=== PATIENT | female | born 1995 | race Two or more races ===

== ENCOUNTER 2025-05-12 14:13 | Emergency (ER) | payer OTHER ==
[~2025-05-12] VITALS: Ht 167.6 cm; Wt 90.7 kg
[2025-05-12] MEDS ORDERED: KETOROLAC TROMETHAMINE 30 MG VIAL ONE (17:37)
[2025-05-12] MEDS ORDERED: KETOROLAC TROMETHAMINE 30 MG VIAL IV STA (17:38)
[2025-05-12] MEDS ORDERED: MORPHINE SULFATE 4 MG/ML VIAL IV STA (17:39)
[2025-05-12 17:58] LABS: BASO % 0.1 % (0.1-1.2); EOS # 0.01 (0.04-0.54); EOS % 0.1 % (0.7-7.0); LYMPH # 2.26 (1.18-3.74); LYMPH % 18.8 % (19.3-53.1); MEAN PLATELET VOLUME 10.00 fl (9.4-12.4); MONO # 0.57 (0.24-0.82); MONO % 4.7 % (4.7-12.5); NEUT # 9.13 (1.56-6.13); NEUT % 75.9 % (34.0-71.1); RED CELL DISTRIBUTION WIDTH 13.1 % (11.6-14.4)
[2025-05-12 18:33] LABS: INR 1.05
[2025-05-12 18:40] LABS: BUN CREA RATIO 18.0 (7.0-25.0); CREATININE SERUM 0.74 mg/dL (0.55-1.02); GFR 93.45; GLUCOSE FASTING 119.0 mg/dL (65-100); OSMOLALITY SERUM 286.0 MOSM/KG (275-295)
== END 2025-05-12 20:15 | disposition home or self-care (01) ==
LOC: ER 14:13
DX: N94.6 Dysmenorrhea, unspecified (principal); Z91.038 Other insect allergy status

== ENCOUNTER 2025-06-30 09:00 | Day surgery (SDC) | payer OTHER ==
[2025-06-23 10:33] VITALS: BP 121/82
[~2025-06-30] VITALS: Ht 167.6 cm; Wt 89.4 kg
[2025-06-30] MEDS ORDERED: POVIDONE-IODINE 118 ML BOTT TOP ONE ×2 (14:01→15:00)
[2025-06-30] MEDS ORDERED: BUPIVACAINE HCL/MPF 0.5% 30ML VIAL ONE (14:01)
[2025-06-30] MEDS ORDERED: IBU800 MG PO (14:16)
[2025-06-30] MEDS ORDERED: OXYCODONE HCL5 M1 PO (14:16)
[2025-06-30] MEDS ORDERED: COLACE100 MG PO (14:16)
[2025-06-30] MEDS ORDERED: SUGAMMADEX SODIUM 200 MG/2 ML VIAL IV ONE ×2 (15:09→16:15)
== END 2025-06-30 19:10 | disposition home or self-care (01) ==
LOC: CIR.AMB 09:00
PROVIDERS: ATTEND Student in an Organized Health Care Education/Training Program
DX: D27.1 Benign neoplasm of left ovary (principal); Z30.2 Encounter for sterilization; R10.2 Pelvic and perineal pain; N80.3A1 Superficial endometriosis of the right uterosacral ligament; N80.213 Superficial endometriosis of bilateral fallopian tubes; N83.8 Other noninflammatory disorders of ovary, fallopian tube and broad ligament